=== PATIENT | female | born 1980 | race Two or more races ===

== ENCOUNTER 2025-03-17 11:10 | Emergency (ER) | payer MEDICAID, OTHER ==
[~2025-03-17] VITALS: Ht 162.6 cm; Wt 62.2 kg
--- NOTE | 2025-03-17 11:42 | ED.PDOC ---
GI ASSESSMENT HPI Comments 44 y/o F, presents to the ED for CC of abdominal pain. Patient states, she has been experiencing diffuse abdominal pain with associated symptoms of shortness of breath, chills, and difficulty swallowing x1week. Patient reports, that she has Cholecystitis and is awaiting to have a cholecystectomy on 04/14/25 and is unsure if symptoms maybe related. At this time patient c/o 9/10 abdominal pain. Patient denies nausea, vomiting, constipation, fatigue, or weakness. No other symptoms or modifying factors are present at this time. Chief Complaint: Abdominal Pain Time Seen by MD: 11:30 Reviewed Notes: Nurses Notes, Medications, Allergies Allergies: Coded Allergies: NO KNOWN ALLERGIES (Unverified , 03/17/25) Information Source: Patient Mode of Arrival: Ambulatory Timing: Weeks Duration: Since onset Prehospital treatment: None Vomitus: None Stool: Normal Severity: Moderate Recent: None Recent Hx of: None Pain Location: None Modifying Factors: Nothing Associated sign and symptoms: Abdominal Pain Past Medical History Past Medical History (Other): gallstones Surgical History: Appendectomy [employer] History: Denies all [employer] PLAY[employer] Hx Family History Family History: Unknown Social History Smoker: Cigar Alcohol: Denies ETOH Use Drugs: Other (edibles) Lives In: Home Constitutional: reports: chills, sweats; denies: diaphoresis, fatigue, fever, malaise, weakness, others EENTM: reports: others (difficulty swallowing); denies: blurred vision, double vision, ear bleeding, ear discharge, ear drainage, ear pain, ear ringing, eye pain, eye redness, hearing loss, mouth pain, mouth swelling, nasal discharge, nose bleeding, nose congestion, nose pain, photophobia, tearing, throat pain, throat swelling, voice changes Respiratory: reports: shortness of breath; denies: cough, hemoptysis, o rthopnea, SOB at rest, SOB with excertion, stridor, wheezing, others Cardiovascular: denies: chest pain, dizzy spells, diaphoresis, Dyspnea on exertion, edema, irregular heart beat, left arm pain, lightheadedness, palpitations, PND, syncope, others Gastrointestinal: reports: nausea; denies: abdomen distended, abdominal pain, blood streaked bowels, constipated, diarrhea, dysphagia, difficulty swallowing, hematemesis, melena, poor appetite, poor fluid intake, rectal bleeding, rectal pain, vomiting, others Genitourinary: denies: abnormal vagina bleeding, burning, dyspareunia, dysuria, flank pain, frequency, hematuria, incontinence, pain, , vagina discharge, urgency, others Neurological: denies: dizziness, fainting, headache, left sided numbness, left sided weakness, numbness, paresthesia, pre-existing deficit, right sided numbness, right sided weakness, seizure, speech problems, tingling, tremors, weakness, others Musculoskeletal: denies: back pain, gout, joint pain, joint swelling, muscle pain, muscle stiffness, neck pain, others Integumetry: denies: bruises, change in color, change in hair/nails, dryness, laceration, lesions, lumps, rash, wounds, others Allergic/Immunocompromised: denies: Difficulty Healing, Frequent Infections, Hives, Itching, others Hematologic/Lymphatic: denies: anemia, blood clots, easy bleeding, easy bruising, swollen glands, others Endocrine: denies: excessive hunger, excessive sweating, excessive thirst, excessive urination, flushing, intolerance to cold, intolerance to heat, unexplained weight gain, unexplained weight loss, others Psychiatric: denies: anxiety, bipolar disorder, depression, hopeless, panic disorder, schizophrenia, sleepless, suicidal, others All Other Systems: Reviewed and Negative Physical Exam General Appearance: Mild Distress HEENT: Normal ENT Inspection, Pharynx Normal, TMs Normal Neck: Full Range of Motion, Non-Tender, Normal, Normal Inspection Respiratory: Chest Non-Tender, Lungs Clear, No Accessory Muscle Use, No Respiratory Distress, Normal Breath Sounds Cardiovascular: No Edema, No JVD, No Murmur, No Gallop, Normal Peripheral Pulses, Regular Rate/Rhythm Breast Exam: Deferred Gastrointestinal: Epigastric, No Organomegaly, No Pulsatile Mass, Normal Bowel Sounds, Soft, Tenderness Genitalia: Deferred Pelvic: Deferred Rectal: Deferred Extremities: No calf tenderness, Normal capillary refill, Normal inspection, Normal range of motion, Non-tender, No pedal edema Musculoskeletal : Apperance: Normal Neurologic: Alert, 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 Was a procedure done?: No GI differential Dx Differential Diagnosis: Cholecystitis, Gastritis/PUD, Gastroenteritis X-Ray, Labs, Meds, VS Vital Signs Date Time Temp Pulse Resp B/P (MAP) Pulse Ox O2 Delivery O2 Flow Rate FiO2 03/17/25 12:51 56 17 109/73 03/17/25 12:47 100 Room Air* 0 21 03/17/25 12:36 98.0 70 17 109/73 (85) 98 98.0 03/17/25 11:12 97.4 72 12 120/80 100 97.4 Lab Test 03/17/25 11:42 Range/Units White Blood Count 4.7 4.4-10.8 10^3/uL Red Blood Count 4.32 4.0-5.20 10^6/uL Hemoglobin 13.1 12.2-16.2 g/dL Hematocrit 39.3 36.0-46.0 % Mean Corpuscular Volume 90.9 80.0-100.0 fL Mean Corpuscular Hemoglobin 30.2 28.0-32.0 pg Mean Corpuscular Hemoglobin Concent 33.2 32.0-36.0 g/dL Red Cell Distribution Width 13.3 11.8-14.3 % Platelet Count 262 140-450 10^3/uL Mean Platelet Volume 10.3 6.9-10.8 fL Neutrophils (%) (Auto) 50.3 37.0-80.0 % Lymphocytes (%) (Auto) 35.3 10.0-50.0 % Monocytes (%) (Auto) 11.1 0.0-12.0 % Eosinophils (%) (Auto) 2.5 0.0-7.0 % Basophils (%) (Auto) 0.8 0.0-2.0 % Neutrophils # (Auto) 2.3 1.6-8.6 10 ^3/uL Lymphocytes # (Auto) 1.6 0.4-5.4 10 ^3/uL Monocytes # (Auto) 0.5 0-1.3 10 ^3/uL Eosinophils # (Auto) 0.1 0-0.8 10 ^3/uL Basophils # (Auto) 0 0-0.2 10 ^3/uL Nucleated Red Blood Cells 0.1 % Sodium Level 140 136-145 mmol/L Potassium Level 3.7 3.5-5.1 mmol/L Chloride Level 104 98-107 mmol/L Carbon Dioxide Level 29 20-31 mmol/L Anion Gap 7 5-15 Blood Urea Nitrogen 11 9-23 mg/dL Creatinine 0.66 0.550-1.02 mg/dL Glomerular Filtration Rate Calc 110 >90 mL/min BUN/Creatinine Ratio 16.7 10.0-20.0 Serum Glucose 102 74-106 mg/dL Calcium Level 9.4 8.7-10.4 mg/dL Total Bilirubin 0.8 0.2-1.0 mg/dL Aspartate Amino Transferase (AST) 14 13-40 U/L Alanine Aminotransferase (ALT) 10 7-40 U/L Alkaline Phosphatase 64 46-116 U/L Total Protein 7.8 5.7-8.2 g/dL Albumin 4.8 3.2-4.8 g/dL Lipase 45 12-53 U/L Current Medications Medications (Trade) Dose Ordered Sig/Ashley Route Start Time Stop Time Status Last Admin Ondansetron HCl (Zofran) 4 mg ONCE ONCE IV 03/17/25 11:45 03/17/25 11:46 DC 03/17/25 12:51 Morphine Sulfate 4 mg ONCE ONCE IV 03/17/25 11:45 03/17/25 11:46 DC 03/17/25 12:51 Pantoprazole Sodium (Protonix) 40 mg ONCE ONCE IV 03/17/25 11:45 03/17/25 11:46 DC 03/17/25 12:51 GALLBLADDER US: IMPRESSION: 1. Normal exam of the abdomen. 2. Right kidney appears normaL The patient's CBC is within normal limits The chemistry panel is within normal limits. The patient was given morphine 4 mg IV push for the pain The patient was given Zofran 4 mg IV push for the nausea The patient was given Protonix 40 mg IV push We are initially going to admit this patient with the patient has eloped from the department's Images Reviewed?: Images reviewed and evaluated by me Time of 1ST Reevaluation: 12:00 Reevaluation 1ST: Unchanged Patient Education/Counseling: Diagnosis, Treatment, Prognosis Family Education/Counseling: No Family Present SEPSIS Sepsis Screen Date sepsis recognized/suspect: Mar 17, 2025 Time Sepsis recognized/suspect: 1112 Recent Procedure: No On Antibiotic Therapy: No Respiratory Rate >20: No Heart Rate >90: No Temp<36 C (96.8 F) or >38.3 C: No SBP <90 or MAP <65 mmHG: No New Acute Mental Status Change: No Is the patient on CPAP, BIPAP,: No Physician Orders Urinalysis (03/17/25 11:31) Heplock Iv (03/17/25 11:31) Neurology Technician (03/17/25 11:31) Blood Pressure (03/17/25 11:31) Pulse Oximetry (03/17/25 11:31) Gallbladder (03/17/25 11:31) Vital Signs Date Time Temp Pulse Resp B/P (MAP) Pulse Ox O2 Delivery O2 Flow Rate FiO2 03/17/25 12:51 56 17 109/73 03/17/25 12:47 100 Room Air* 0 21 03/17/25 12:36 98.0 70 17 109/73 (85) 98 98.0 03/17/25 11:12 97.4 72 12 120/80 100 97.4 Laboratory Tests Test 03/17/25 11:42 White Blood Count 4.7 10^3/uL (4.4-10.8) Medications Medications Dose Ordered Sig/Ashley Route Start Time Stop Time Status Last Admin Dose Admin Morphine Sulfate 4 mg ONCE ONCE IV 03/17/25 11:45 03/17/25 11:46 DC 03/17/25 12:51 Ondansetron HCl 4 mg ONCE ONCE IV 03/17/25 11:45 03/17/25 11:46 DC 03/17/25 12:51 Pantoprazole Sodium 40 mg ONCE ONCE IV 03/17/25 11:45 03/17/25 11:46 DC 03/17/25 12:51 Departure 1 Departure Time of Disposition: 18:51 Impression: Primary Impression: Abdominal pain Qualified Codes: R10.13 - Epigastric pain Disposition: 07 LEFT AWOL/ELOPED Condition: Fair Critical Care Note Critical Care Time?: No Stability Stability form required: No Heart Score Heart Score: Heart Score Response (Comments) Value History N/A 0 EKG N/A 0 Age N/A 0 Risk Factors N/A 0 Troponin N/A 0 Total 0 I personally scribed for NAKIA ESCOBAR MD ([email or web address]) on 03/17/25 at 11:42. Electronically submitted by Vianney Joseph ([email or web address]). I personally scribed for NAKIA ESCOBAR MD ([email or web address]) on 03/17/25 at 11:52. Electronically submitted by Vianney Joseph ([email or web address]). I personally scribed for NAKIA ESCOBAR MD ([email or web address]) on 03/17/25 at 13:04. Electronically submitted by Vianney Joseph ([email or web address]). NAKIA ESCOBAR MD Mar 17, 2025 11:42
[2025-03-17 12:16] LABS: Hematocrit 39.3 % (36.0-46.0); Hemoglobin 13.1 g/dL (12.2-16.2); Mean Corpuscular Hemoglobin 30.2 pg (28.0-32.0); Mean Corpuscular Volume 90.9 fL (80.0-100.0); Nucleated Red Blood Cells % 0.1 %
[2025-03-17 12:38] LABS: Alanine Aminotransferase 10 U/L (7-40); Albumin 4.8 g/dL (3.2-4.8); Alkaline Phosphatase 64 U/L (46-116); Anion Gap 7 (5-15); BUN/Creatinine Ratio 16.7 (10.0-20.0); Blood Urea Nitrogen 11 mg/dL (9-23); Calcium 9.4 mg/dL (8.7-10.4); Carbon Dioxide 29 mmol/L (20-31); Chloride 104 mmol/L (98-107); Glucose 102 mg/dL (74-106); Lipase 45 U/L (12-53); Potassium 3.7 mmol/L (3.5-5.1); Sodium 140 mmol/L (136-145); Total Protein 7.8 g/dL (5.7-8.2)
[2025-03-17 12:39] LABS: Bilirubin, Total 0.8 mg/dL (0.2-1.0)
--- NOTE | 2025-03-17 12:46 | DVH ---
INDICATION: pain TECHNIQUE: Multiple real-time sonographic images of the abdomen were obtained. COMPARISON: None FINDINGS: The liver is homogenous in echogenicity. The liver measures 12.61 cm. No intrahepatic biliary ductal dilatation is noted. The gallbladder wall measures 0.25 cm and is unremarkable. Gallstone in the gallbladder.. The common duct measures 0.48 cm and is unremarkable. No pericholecystic fluid is noted. Negative sonographic Neville's sign The right kidney measures 9.6 cm. No hydronephrosis. The pancreas is not well visualized due to obscuration from bowel gas. The visualized portions of the IVC and aorta are grossly unremarkable. IMPRESSION: 1. Normal exam of the abdomen. 2. Right kidney appears normal
[2025-03-17] MEDS: ONDANSETRON HCL 4 MG/2 ML VIAL IV ONE (12:51)
[2025-03-17] MEDS: MORPHINE SULFATE 4 MG/ML SYR/VIAL IV ONE (12:51)
[2025-03-17] MEDS: PANTOPRAZOLE 40 MG/10 ML VIAL INJ IV ONE (12:51)
[2025-03-17 18:59] VITALS: PULSE 67; RESP 17; O2SAT 97
[2025-03-17 22:24] VITALS: BP 105/70; PULSE 56; RESP 14; TEMP 97.4; O2SAT 98
[2025-03-17 22:46] LABS: Urine Protein, UAD 2+ (Negative)
--- NOTE | 2025-03-17 22:50 | DVH ---
Procedure: XY NECK FOR SOFT TISSUE Exam Date: 03/17/2025 09:21 PM History: pain Comparison Study: None Technique: Soft Tissue Neck: AP and lateral views. Findings: No evidence of soft tissue swelling or radiopaque foreign body. Epiglottis appears normal. Impression: Negative soft tissue neck.
== END 2025-03-17 18:43 | disposition left against medical advice (07) ==
LOC: ER 11:10
DX: R10.84 Generalized abdominal pain (principal); F17.290 Nicotine dependence, other tobacco product, uncomplicated; Z90.49 Acquired absence of other specified parts of digestive tract
CPT/HCPCS: 36415; 70360; 76705; 80053; 81001; 83690; 85025; 96374; 96375; 99285; J2270; J2405; J2470

== ENCOUNTER 2025-03-21 09:42 | Outpatient (CLI) | payer MEDICAID ==
[2025-03-21 10:28] LABS: Hematocrit 39.7 % (36.0-46.0); Hemoglobin 13.5 g/dL (12.2-16.2); Mean Corpuscular Hemoglobin 30.7 pg (28.0-32.0); Mean Corpuscular Volume 90.6 fL (80.0-100.0); Nucleated Red Blood Cells % 0.0 %
[2025-03-21 10:33] LABS: Urine Protein, UAD Negative (Negative)
[2025-03-21 10:52] LABS: Alanine Aminotransferase 11 U/L (7-40); Alkaline Phosphatase 68 U/L (46-116); BUN/Creatinine Ratio 14.7 (10.0-20.0); Blood Urea Nitrogen 10 mg/dL (9-23); Calcium 9.5 mg/dL (8.7-10.4); Carbon Dioxide 28 mmol/L (20-31); Cholesterol 186 mg/dL (< 200); Glucose 95 mg/dL (74-106); HDL Cholesterol 50 mg/dL (40-59); Potassium 4.0 mmol/L (3.5-5.1); Sodium 141 mmol/L (136-145); Total Protein 8.2 g/dL (5.7-8.2); Triglycerides 136 mg/dL (< 150)
[2025-03-21 10:53] LABS: Albumin 5.1 g/dL (3.2-4.8); Bilirubin, Total 0.7 mg/dL (0.2-1.0)
[2025-03-21 10:59] LABS: Anion Gap 9 (5-15); Chloride 104 mmol/L (98-107)
== END 2025-03-21 17:00 | disposition home or self-care (01) ==
LOC: LAB 09:42
PROVIDERS: ATTEND Internal Medicine
DX: E78.2 Mixed hyperlipidemia (principal); E03.9 Hypothyroidism, unspecified; Z00.01 Encounter for general adult medical examination with abnormal findings
CPT/HCPCS: 36415; 80053; 80061; 81001; 83036; 84439; 84443; 85025